=== PATIENT | female | born 1955 | race Caucasian/White ===

== ENCOUNTER 2017-03-04 09:32 | Inpatient (IN) | payer OTHER ==
[~2017-03-04] VITALS: Ht 167.6 cm; Wt 74.1 kg
[~2017-03-04 09:32] MED LIST: ALPRAZOLAM0.25 M1; CAT0.1 PO; CLONIDINE HCL0.1 MG; GLU500 PO; IMDUR30 MG; MAXZIDE1 TAB; METOPROLOL TART25 M1 PO; MIN2.5 PO; OMEPRAZOLE DR20 M1; ZES10 PO; [UNRECOGNIZED DRUG - CODE] PO
[2017-03-04 11:04] LABS: BASOPHIL % 0.5 % (0-2); PLATELET COUNT 241 x10^3mcL (130-400)
[2017-03-04 11:09] LABS: RED CELL DISTRIBUTION WIDTH 14.7 % (11.5-14.5)
[2017-03-04 11:30] LABS: CK-MB 1.4 ng/mL (0-3.6); T3 TOTAL 1.32 ng/mL
[2017-03-04 11:31] LABS: CALCIUM 9.9 mg/dL (8.5-10.1); CARBON DIOXIDE 23.9 mmol/L (21-32); CHLORIDE SERUM 95 mmol/L (98-107); CREATININE SERUM 1.3 mg/dL (0.6-1.0); GFR1 44 mL/min; GLUCOSE SERUM 193 mg/dL (74-106); POTASSIUM SERUM 3.4 mmol/L (3.5-5.1); SODIUM SERUM 133 mmol/L (136-145)
[2017-03-04 11:38] LABS: ALBUMIN 3.7 g/dL (3.4-5.0); ALKALINE PHOSPHATASE 95 U/L (46-116); ALT/SGPT 28 U/L (14-59); AST/SGOT 20 U/L (15-37); BILIRUBIN TOTAL 1.01 mg/dL (0.20-1.00); TOTAL PROTEIN, SERUM 7.8 g/dL (6.4-8.2)
[2017-03-04 12:01] LABS: ERYTHROCYTE SED RATE 28 mm/hr (0-30)
[2017-03-04 13:13] LABS: FREE T4 1.7 ng/dL (0.76-1.46); FREE THYROXINE INDEX 4.8 ug/dL (1.4-4.5); T4(THYROXINE) 13.1 ug/dL (4.7-13.3)
[2017-03-04 13:31] LABS: C REACTIVE PROTEIN < 0.2 mg/dL (<=0.9)
[2017-03-04 15:23] LABS: UA SPECIFIC GRAVITY 1.025 (1.005-1.035); microscopic required? YES; urine erythrocyte 1+ (NEGATIVE)
[2017-03-04 15:44] LABS: CHOLESTEROL/HDL RATIO 4.4; MAGNESIUM 1.7 mg/dL (1.8-2.4); PHOSPHOROUS 2.2 mg/dL (2.5-4.9)
[2017-03-04 16:46] VITALS: BP 173/108
[2017-03-04 16:48] VITALS: Ht 167.6 cm; Wt 74.1 kg
[2017-03-04 21:44] VITALS: BP 184/99
[2017-03-04 22:43] VITALS: BP 159/87
[2017-03-05 06:11] VITALS: BP 167/83
[2017-03-05 06:43] LABS: BASOPHIL % 0.5 % (0-2); PLATELET COUNT 201 x10^3mcL (130-400); RED CELL DISTRIBUTION WIDTH 14.5 % (11.5-14.5)
[2017-03-05 06:54] LABS: CALCIUM 8.4 mg/dL (8.5-10.1); CARBON DIOXIDE 25.7 mmol/L (21-32); CREATININE SERUM 1.1 mg/dL (0.6-1.0); MAGNESIUM 1.8 mg/dL (1.8-2.4); PHOSPHOROUS 3.6 mg/dL (2.5-4.9); POTASSIUM SERUM 3.9 mmol/L (3.5-5.1)
[2017-03-05 09:35] VITALS: BP 163/86
[2017-03-05 14:52] VITALS: BP 151/81
[2017-03-05 18:18] VITALS: BP 147/74
[2017-03-05 21:50] VITALS: BP 162/80
[2017-03-06 06:01] VITALS: BP 143/79
[2017-03-06 06:56] LABS: BASOPHIL % 0.9 % (0-2); PLATELET COUNT 186 x10^3mcL (130-400); RED CELL DISTRIBUTION WIDTH 14.5 % (11.5-14.5)
[2017-03-06 07:55] LABS: CALCIUM 8.1 mg/dL (8.5-10.1); CARBON DIOXIDE 22.8 mmol/L (21-32); CHLORIDE SERUM 108 mmol/L (98-107); CREATININE SERUM 0.9 mg/dL (0.6-1.0); GFR1 > 60 mL/min; GLUCOSE SERUM 126 mg/dL (74-106); POTASSIUM SERUM 4.1 mmol/L (3.5-5.1); SODIUM SERUM 140 mmol/L (136-145)
[2017-03-06 10:00] VITALS: BP 167/81
[2017-03-06 12:44] VITALS: BP 163/70
[2017-03-06 14:00] VITALS: BP 156/76
[2017-03-06 18:41] VITALS: BP 186/83
[2017-03-06 21:34] VITALS: BP 187/88
[2017-03-07 04:15] LABS: PLATELET COUNT 181 x10^3mcL (130-400); RED CELL DISTRIBUTION WIDTH 14.4 % (11.5-14.5)
[2017-03-07 04:21] LABS: BASOPHIL % 2.8 % (0-2)
[2017-03-07 04:25] LABS: CALCIUM 8.1 mg/dL (8.5-10.1); CARBON DIOXIDE 26.7 mmol/L (21-32); CHLORIDE SERUM 107 mmol/L (98-107); CREATININE SERUM 0.9 mg/dL (0.6-1.0); GFR1 > 60 mL/min; GLUCOSE SERUM 113 mg/dL (74-106); POTASSIUM SERUM 4.3 mmol/L (3.5-5.1); SODIUM SERUM 138 mmol/L (136-145)
[2017-03-07 05:42] VITALS: BP 128/82
[2017-03-07 11:13] VITALS: BP 187/82
[2017-03-07 15:18] VITALS: BP 137/74
[2017-03-07] MEDS ORDERED: ZESTRIL20 MG PO (16:35)
[2017-03-07] MEDS ORDERED: LAC PO (16:37)
[2017-03-07] MEDS ORDERED: LEVAQUIN750 MG PO (16:37)
[2017-03-07] MEDS ORDERED: OMEPRAZOLE40 M1 PO (16:40)
[2017-03-07] MEDS ORDERED: METOPROLOL TART50 MG PO (16:45)
[2017-03-07 17:31] VITALS: BP 137/74
== END 2017-03-07 18:10 | disposition home or self-care (01) | DRG 391 ==
LOC: ED 09:32 → DU 15:24
PROVIDERS: Specialist; ADMIT Family Medicine
DX: K21.9 Gastro-esophageal reflux disease without esophagitis (principal); N17.0 Acute kidney failure with tubular necrosis; N39.0 Urinary tract infection, site not specified; I16.1 Hypertensive emergency; C78.01 Secondary malignant neoplasm of right lung; E11.65 Type 2 diabetes mellitus with hyperglycemia; E11.59 Type 2 diabetes mellitus with other circulatory complications; J44.9 Chronic obstructive pulmonary disease, unspecified; G47.00 Insomnia, unspecified; E87.6 Hypokalemia; E78.2 Mixed hyperlipidemia; Z68.26 Body mass index [BMI] 26.0-26.9, adult; Z87.891 Personal history of nicotine dependence; Z85.520 Personal history of malignant carcinoid tumor of kidney; Z90.5 Acquired absence of kidney; Z96.652 Presence of left artificial knee joint; Z79.84 Long term (current) use of oral hypoglycemic drugs
CPT/HCPCS: 36600; 78598; 83880; 84439; A9540; C9113; J0360; J1170; J1644; J1956; J2270; J2405; J2765; J3010; J3490; J7030; Q0092

== ENCOUNTER 2017-05-15 15:05 | Inpatient (IN) | payer OTHER ==
[~2017-05-15] VITALS: Ht 167.6 cm; Wt 77.7 kg
[~2017-05-15 15:05] MED LIST changes: +LAC PO; +LEVAQUIN750 MG PO; +METOPROLOL TART50 MG PO; +OMEPRAZOLE40 M1 PO; +ZESTRIL20 MG PO
--- NOTE | 2017-05-15 15:13 | NUR ---
PT SENT TO LOBBY TO WAIT FOR AVAILABLE BED. 0 S/S DISTRESS AND ALERT AND ORIENTED
--- NOTE | 2017-05-15 15:48 | NUR ---
PT CAME IN TO ED W/CC OF CHEST PAIN. PT STS SHE WAS INFORMED BY [facility] THAT SHE HAS A BLOOD CLOT TO HER RT LUNG LAST WEEK AND WAS ADVISED THAT IF SHE BEGAN HAVING CHEST PAIN OR SOB TO BE SEEN IN ED. PT STS TODAY SHE BEGAN HAVING CP AND DIFFICULTY CATCHING HER BREATH. PT LUNG IVEY CLEAR UPON AUSCULTATION. NO LABORED BREATHING NOTED. PT SPEAKING IN CLEAR FULL SENTENCES. VSS. PT HAS PORTACATH TO RT UPPER CHEST REGION. COMFORT MEASURES IMPLEMENTED. CALL LIGHT W/IN REACH. PT AWAITING MSE. WILL CONTINUE TO MONITOR.
--- NOTE | 2017-05-15 16:17 | NUR ---
PORTACATH ACCESSED. SALINE LOCK APPLIED. PT DENIES PAIN OR DISCOMFORT TO SITE. WILL CONTINUE TO MONITOR.
[2017-05-15 16:25] LABS: PLATELET COUNT 187 x10^3mcL (130-400)
[2017-05-15 16:29] LABS: CALCIUM 8.4 mg/dL (8.5-10.1); CARBON DIOXIDE 28.2 mmol/L (21-32); CREATININE SERUM 1.2 mg/dL (0.6-1.0); POTASSIUM SERUM 3.5 mmol/L (3.5-5.1)
[2017-05-15 16:34] LABS: RED CELL DISTRIBUTION WIDTH 15.5 % (11.5-14.5)
[2017-05-15 16:35] LABS: BILIRUBIN TOTAL 0.2 mg/dL (0.20-1.00); TOTAL PROTEIN, SERUM 6.3 g/dL (6.4-8.2)
--- NOTE | 2017-05-15 16:57 | NUR ---
MEDICATED ORDERED. PLEASE SEE EMR.
[2017-05-15 17:05] LABS: BAND NEUTROPHIL 3 % (0-10); BASOPHIL 0 % (0-2); METAMYELOCTE 1 % (0-2); MONOCYTE 5 % (0-7); MYELOCYTE 1 % (0-2); SEGMENTED NEUTROPHILS 65 % (37-75)
[2017-05-15 17:12] LABS: rbc morphology (normal/abnorm) ABNORMAL (NORMAL)
[2017-05-15 17:13] LABS: PLATELET MORPHOLOGY LARGE PLATELET SEEN
--- NOTE | 2017-05-15 17:20 | NUR ---
SPOKE W/LINDA, FARM MACHINERY ASSEMBLER AT [facility]. LINDA [facility] IS CURRENTLY CLOSED AND ADVISED TO SEND MEDICAL RELEASE FORM TO OBTAIN PT'S CT SCAN TO FAX # . CHIQUITA, SPORTING GOODS SALES ASSOCIATE, MADE AWARE. FAX IN PROGRESS.
[2017-05-15] MEDS ORDERED: NITROGLYCERIN0.4 MG (18:43)
[2017-05-15] MEDS ORDERED: MINOXIDIL2.5 MG (18:43)
[2017-05-15] MEDS ORDERED: HCTZ/TRIAMTEREN1 CA1 (18:43)
[2017-05-15] MEDS ORDERED: NOR10T (18:44)
[2017-05-15] MEDS ORDERED: PROCHLORPERAZIN10 MG (18:44)
[2017-05-15] MEDS ORDERED: PROVENTIL0.09 MG/A1 (18:44)
[2017-05-15] MEDS ORDERED: LORAZEPAM0.5 MG (18:44)
[2017-05-15] MEDS ORDERED: ZOF4 (18:44)
--- NOTE | 2017-05-15 18:51 | NUR ---
REPORT GIVENT TO EDWIN COMER FOR CONTINUATION OF CARE PRIMARY RN.
--- NOTE | 2017-05-15 19:07 | NUR ---
REPORT RECEIVED FROM ROSIE PINEDA.
--- NOTE | 2017-05-15 19:30 | NUR ---
RECEIVED PT FROM ED VIA ROXANA. ORIENTED PT TO ROOM AND SURROUNDINGS. RIGHT CHEST PORTACATH NOTED. TELE 15 PLACED ON PT READING NSR. INSTRUCTED PT ON THE USE OF CALL LIGHT FOR ASSISTANCE. ENDORSED PT TO PRIMARY NURSE MATTIE
[2017-05-15 19:40] LABS: CHOLESTEROL/HDL RATIO 4.5; MAGNESIUM 1.5 mg/dL (1.8-2.4); PHOSPHOROUS 3.8 mg/dL (2.5-4.9); T3 TOTAL 1.55 ng/mL
[2017-05-15 19:45] VITALS: BP 190/105
--- NOTE | 2017-05-15 20:00 | NUR ---
PT ALERT AND AWAKE. AOX4. VERBAL WITH CLEAR SPEECH. LUNGS WITH WHEEZE ON AUSCULTATION. RT PROTOCOL. PT C/O CHEST FEELING HEAVY, BP 190/105. 98% RA. ABD SOFT AND ROUND. BOWEL SOUNDS ACTIVE. NO EDEMA NOTED. PULSES PALPABLE. DR. SALAZAR NOTIFIED AND AWARE. RECEIVED NEW ORDERS.
[2017-05-15 20:01] LABS: FREE THYROXINE INDEX 4.3 ug/dL (1.4-4.5); T4(THYROXINE) 11.7 ug/dL (4.7-13.3)
[2017-05-15 20:11] LABS: FREE T4 1.29 ng/dL (0.76-1.46)
[2017-05-15 20:50] VITALS: BP 190/105
--- NOTE | 2017-05-15 21:10 | NUR ---
PORTACATH TO RIGHT CHEST PATENT AND INTACT WITH IV NS INFUSING WELL AT 70 L/HR. NEW IV STARTED TO LEFT HAND 22 G. LOADING IV DOSE 6,200 UNITS GIVEN. IV HEPARIN INFUSING AT 1,400 UNITS/HR TO LEFT HAND. NOTED BP 177/114. PRN MORPHINE 5 MG IVP GIVEN AND ALSO CATAPRES 0.2 MG. HOB ELEVATED. NO S/S OF RESPIRATORY DISTRESS NOTED. CALL LIGHT WITHIN REACH. WILL CONTINUE TO MONITOR.
[2017-05-15 21:40] VITALS: BP 172/72
--- NOTE | 2017-05-15 21:45 | NUR ---
PT RESTING IN BED. BREATHING EQUAL AND UNLABORED. PT STATES FEELING BETTER AND RATES CHEST PAIN LEVEL 5/10. RECHECKED BP 172/72, 96% RA. NOTIFIED AND AWARE OF PT'S CURRENT CONDITION. PER MD ORDER, CHECK PT'S BP AGAIN AT 0000. PT CURRENTLY AWAKE, ALERT, AND WATCHING TV. CALL LIGHT WITHIN REACH. WILL CONTINUE TO MONITOR.
--- NOTE | 2017-05-15 22:30 | NUR ---
PT REFUSED ABG.
[2017-05-16] VITALS (7 sets, daily range): BP systolic 140–180; BP diastolic 75–109
--- NOTE | 2017-05-16 00:25 | NUR ---
PT RESTING WITH EYES CLOSED. BREATHING EQUAL AND UNLABORED. NO S/S OF RESPIRATORY DISTRESS NOTED. RECHECKED VS: T 97.7, HR 84, RR 16, BP 140/78, MAP 92. PT STILL HAVING CHEST PAIN 03/12. PRN MORPHINE 2MG IVP GIVEN. CALL LIGHT WITHIN REACH. WILL CONTINUE TO MONITOR.
--- NOTE | 2017-05-16 02:00 | NUR ---
RECEIVED CALL FROM [employer], PT HAD 9 SEC RUN OF VTACH. PT ALERT AND VERBAL WITH CLEAR SPEECH. ON O2 2L VIA NC. C/O 04/11 CHEST "HEAVINESS." BP 164/109, MAP 127, HR 88. DR. SALAZAR NOTIFIED AND AWARE. AWAITING NEW ORDERS.
--- NOTE | 2017-05-16 03:40 | NUR ---
RECHECKED PT'S VS: BP 149/81, MAP 94, HR 84, 95% 2L O2 VIA NC. NO S/S OF RESPIRATORY DISTRESS NOTED. EASILY AROUSED. PT C/O CHEST PAIN HEAVINESS 04/11. PRN MORPHINE 2 MG IVP GIVEN. IV HEPARIN INFUSING WELL AT 1400 UNITS PER HR TO LEFT FA AND IV NS INFUSING WELL TO LEFT UPPER CHEST PORTACATH. WILL CONTINUE TO MONITOR.
--- NOTE | 2017-05-16 05:06 | NUR ---
RECEIVED CRITICAL LAB PTT 150. IV HEPARIN HELD AT THIS TIME. PT STATES CHEST PAIN FEELING BETTER. NO S/S OF DISTRESS NOTED. DR. SALAZAR NOTIFIED AND AWARE.
--- NOTE | 2017-05-16 06:14 | NUR ---
PT SLEPT WELL THROUGH THE NIGHT. CURRENTLY AWAKE AND WATCHING TV AT THIS TIME. NO S/S OF DISTRESS NOTED. REMAINS ON O2 2L. BREATHING EQUAL AND UNLABORED. IV NS INFUSING WELL TO RIGHT UPPER CHEST PORTACATH. PT STATES HAVING SOB WHEN COMING BACK FROM THE [place]. 97% 2L O2 VIA NC. RT PROTOCOL. CALL LIGHT WITHIN REACH. WILL CONTINUE TO MONITOR.
[2017-05-16 07:19] LABS: microscopic required? YES; urine erythrocyte TRACE (NEGATIVE)
[2017-05-16 07:24] LABS: PLATELET COUNT 217 x10^3mcL (130-400)
[2017-05-16 07:26] LABS: RED CELL DISTRIBUTION WIDTH 15.9 % (11.5-14.5)
--- NOTE | 2017-05-16 07:30 | NUR ---
AAO X4.C/O CHEST PAIN AT 6/10 PAIN SCALE.WILL GIVE MEDS NEEDED.LUNG SOUND DIM ON THE BASES.ON [address] ON THE MONITOR.UV=169.IVF NS GOING AT 70 ML/HR INFUSING WELL.HEPARIN ON HOLD FOR PTT > 150 REPORTED BY NOC RN.JUST DRAW BLOOD FOR PTT.CALL LIGHT WITHIN REACH.INSTRUCTED TO CALL FOR ANY PAIN/DISCOMFORT.WILL CONTINUE TO MONITOR PT.
[2017-05-16 07:32] LABS: CALCIUM 8.8 mg/dL (8.5-10.1); CARBON DIOXIDE 26.1 mmol/L (21-32); CREATININE SERUM 1.1 mg/dL (0.6-1.0); MAGNESIUM 2.1 mg/dL (1.8-2.4); POTASSIUM SERUM 3.9 mmol/L (3.5-5.1)
[2017-05-16 08:12] LABS: BAND NEUTROPHIL 3 % (0-10); BASOPHIL 0 % (0-2); MONOCYTE 2 % (0-7); SEGMENTED NEUTROPHILS 88 % (37-75)
[2017-05-16 08:16] LABS: rbc morphology (normal/abnorm) ABNORMAL (NORMAL)
--- NOTE | 2017-05-16 08:20 | NUR ---
PTT=39.8.TURNED ON THE HEPARIN GTT AND INCREASED GTT TO 200 UNITS PER PROTOCOL ALSOO BOLUSED HER WITH 3100 UNITS PER PROTOCOL.CURRENT RATE NOW IS 1600 UNITS/HR.ORDERED NEXT PTT AT 1220.
--- NOTE | 2017-05-16 08:24 | NUR ---
AND MEDICINE TEAM AT BEDSIDE.INFORMED PT ABOUT THE PLAN OF CARE.ALSO WILL HAVE PSYCHE CONSULT TO SEE PT.COOPERATIVE WITH THE PLAN OF CARE.
--- NOTE | 2017-05-16 13:00 | NUR ---
TTH=130.HELD HEPARIN GTT FOR AN HOUR PER HEPARIN PROTOCOL.THEN WILL REDUCE GTT TO 200 UNITS/HR.ORDERED NEXT PTT AT 1800
--- NOTE | 2017-05-16 14:10 | NUR ---
GAVE HYDRALAZINE 10 MG IVP ORDERED FOR BC=711/101.
--- NOTE | 2017-05-16 14:17 | NUR ---
RECHECKED AO=629/87,HR=96 AFTER GIVING HER HYDRALAZINE.
--- NOTE | 2017-05-16 18:00 | NUR ---
PTT=82.8,DECREASED HEPARIN GTT TO 200 UNITS PER PROTOCOL.ORDERED NEXT PTT AT 2200.CURRENT HEPARIN GTT AFTER [id number]=6441 UNITS/HR
--- NOTE | 2017-05-16 18:33 | NUR ---
NO SIGNIFICANT CHANGE NOTED.WILL ENDORSE TO NEXT SHIFT.
--- NOTE | 2017-05-16 18:50 | NUR ---
GAVE HYDRALALAZINE 10 MG IVP ORDERED PT'S SY=113/87.
--- NOTE | 2017-05-16 20:00 | NUR ---
RECEIVED PT IN BED AWAKE, ALERT, ORIENTED X3. PT APPEARS WITHDRAWN AND SAD AT TIMES, SEEMS TO BE CRYING. COMFORT MEASURES PROVIDED. LUNG SOUNDS CRACKLES BILATERALLY. TELE 15 SHOWS SR. MILD CHEST PAIN NOTED. TOLERATING WELL AT THIS TIME. RIGHT BLAINE CATH IN TACT INFUSING NS AT 70ML/HR. PT ON HEPARIN DRIP AT 1200 UNITS/HR TO LFA. NEXT PTT 2200. SHIFT ASSESSMENT COMPLETED. CALL LIGHT WITHIN REACH. BED IS IN LOWEST POSITION. WILL CONTINUE TO MONITOR CLOSELY.
--- NOTE | 2017-05-16 21:10 | NUR ---
ALL DUE MEDS GIVEN ORDERED, PT GIVEN NORCO FOR PAIN. IVF ONGOING. CALL LIGHT WITHIN REACH. WILL CONTINUE TO MONITOR CLOSELY.
--- NOTE | 2017-05-16 23:05 | NUR ---
PT PTT IS 75.3, CHANGED HEPARIN DRIP TO 1000 UNITS/HR AT THIS TIME. ORDERED NEXT PTT FOR 0300. PT RESTING IN BED IN NO DISTRESS. WILL CONTINUE TO MONITOR CLOSELY.
[2017-05-17 03:25] LABS: BASOPHIL % 0.5 % (0-2); PLATELET COUNT 219 x10^3mcL (130-400)
[2017-05-17 03:26] LABS: RED CELL DISTRIBUTION WIDTH 15.9 % (11.5-14.5)
[2017-05-17 03:48] LABS: CALCIUM 8.4 mg/dL (8.5-10.1); MAGNESIUM 1.7 mg/dL (1.8-2.4); POTASSIUM SERUM 4.1 mmol/L (3.5-5.1)
--- NOTE | 2017-05-17 04:00 | NUR ---
PTT IS 62.5, NO CHANGE. FIRST THERAPUETIC PTT. NEXT PTT AT 0800. PT RESTING IN BED.
[2017-05-17 06:05] VITALS: BP 182/92
--- NOTE | 2017-05-17 07:40 | NUR ---
RECEIVED PT IN BED A/A/OX4 DENIES GALLEGOS. RESP EVEN AND UNLABORED WITH CRACKLES TO RT SIDE. ON O2 AT 2L/MIN VIA NC WITH RT PROTOCOL. ON HEPARIN DRIP AT 1000 UNITS/HR FOR +PE. DENIES ANY CP/PRESSURE AT THIS TIME. ST ON TELE. NO EDEMA NOTED WITH IVF TO RT CHEST PORT CATH AND LFA IV SITE WITH HEPARIN DRIP. ABD SOFT, NONTENDER WITH ACTIVE BS X4. DENIES ANY N/V AT THIS TIME. AMBUALTORY. CALL LIGHT IN REACH NEEDS ATTENDED TO.
--- NOTE | 2017-05-17 08:32 | NUR ---
RECEIVED PTT 54.4, SECOND THERAPEUDIC NO CHANGE IN DRIP. WILL ORDER DAILY PTT. WILL CONT TO MONITOR.
--- NOTE | 2017-05-17 09:00 | NUR ---
PT C/O CP 9/10 MORPHINE IVP PULLED AND GIVEN AT THIS TIME. ONCE ALL MEDICATIONS WERE COMPLETED AND ATTEMPTED TO SUMMIT MEDS MORPHINE HAD BEEN DISCONTINUED AND WAS UNABLE TO DOCUMENT IN EMAR. PT HAD ALREADY RECEIVED DOSE BEFORE IT WAS DISCONTINUED. DR. WARD AND MEDICAL TEAM CAME IN FOR AM ROUNDS AND WERE MADE AWARE. MD ORDER EKG AT THIS TIME. PT NOTED WITH ELEVATED B/P WELL 202/95, AM MEDS GIVEN WILL CONT TO MONITOR.
[2017-05-17 10:20] VITALS: BP 200/96
[2017-05-17 11:00] VITALS: BP 170/93
[2017-05-17 14:31] VITALS: BP 161/82
[2017-05-17] MEDS ORDERED: ELIQUIS5 MG PO (14:47)
--- NOTE | 2017-05-17 15:06 | NUR ---
DR. WHEELER PAGED AWAITING CALL BACK TO INQUIRE IF PT WILL NEED DOSE OF ELIQUIS PRIOR TO D/C. AWAITING CALL BACK.
--- NOTE | 2017-05-17 15:21 | NUR ---
Initial Nutrition Assessment Dx: Pulmonary Embolism, Lung CA PMHx: Lung CA diagnosed October 2016, GERD, DM, Dislipidemia, Anxiety PSHx: Right total nephrectomy, Left knee replacement Labs: BG 182H, ALB 3L, TBili 0.2 L, TG 235H, LDL 105H, A1C 6.9H, Mages 1.7L, WBC 21 H, H/H 9.3/29L. Meds: Colace, D50%, Dyazide, NS IV, Glucophage, Hep-lock, Humulin, Hydrazaline, Ipatropium bromide, Prilosec, Zofran, Solumedrol, Heparin Diet: CCHO 60g PO Intake: (05/16) 90%, (05/17) B: 40% Ht: 66in Wt: 171Lb (Admit wt discrepancy due to possible bed equipment) Weight history: (05/15) 149lb BMI: 27.7kg/m2 (Overweight) IBW: 130lb %IBW: 131% Adj. Body Weight: 140lb UBW: 155lb (per pt) Age: 61 y/o F Food Allergies: No Skin: Tom 19 Edema: No GI: Bowel sounds active. Last BM 05/15 Pt admitted with possible acute respiratory failure secondary to pulmonary embolism, pt on chemo, treated at [facility], pt found with thrombocytopenia and a pulmonary embolism on right upper lobe, stopped chemo due to thrombocytopenia, CT chest shows 11x9 mm lung nodule in right middle lobe per H&P notes. Per progress note (05/16) pt continuous to have chest discomfort, is visibly distressed, pt is pending psychological evaluation. quality internship visited pt who had lunch tray in bed but was not eating, pt's was eating entr e dish, RN nurse was notified. Pt stated has poor PO and constant nausea, internet media planner offered information about oral supplements, pt acknowledged information but was unfocussed. Pt is on medications for nausea, pt seemed depressed and uninterested in eating. Problems with: N: Yes V: No D: No C: No Problems with: Chewing: No Swallowing: No Current Appetite: Poor Recent wt change: +16 lb (pt unsure about when last weighted 155lb) %wt change: 9% wt gain Vitamin/Supplement use: No Diet at home: Regular Physical activity: Walks at home for daily activities Education: quality internship spoke to pt about how nausea has affected pt's appetite, internet media planner encouraged small meals and snacks throughout day, and oral supplements to increase PO intake. Per pt she does not like oral supplements due to thickness, internet media planner encouraged diluting the supplement with water or buying clear liquid supplements. Pt stated may try at home, but not agreeable to having oral supplements included with meals, pt stated will be discharged soon. Estimated Nutritional Needs Based on: Adjusted body weight 140lb, 63.5kg Energy: 1905-2222kcal/d (kcal/kg 30-35 for current lung CA) Protein: 76-95g/d (1.2-1.5 for current lung CA) Fluid: 1905-2222ml/d (1ml/kcal) or per doctor Nutrition Diagnosis: 1. Increased nutritional needs related to catabolic state as evidenced by current lung CA. 2. Altered nutrition related lab values related to pancreatic dysfunction as evidenced by A1C of 6.9 and BG 182. Intervention: 1. Continue CCHO 60g 2. Consider appetite stimulant if poor PO intake continuous <50%. 3. Adjust nausea medications as appropriate Monitor/ Evaluate: Goal: PO intake to meet at least 75% of estimated needs Monitor: PO intake, Labs (BG), GI function F/U in 3-5days as Moderate risk (05/20-05/22)
--- NOTE | 2017-05-17 15:21 | NUR ---
1. Continue CCHO 60g 2. Consider appetite stimulant if PO intake continuous <50%. 3. Adjust nausea medications as appropriate
[2017-05-17 15:24] VITALS: BP 161/82
--- NOTE | 2017-05-17 15:31 | NUR ---
SPOKE WITH DR. WHEELER. REGARDING POSSIBLE NEED FOR MEDROL ONCE D/C. NO ORDERS AT THIS TIME. OK FOR PT TO BE D/C'D AND WILL TELETYPESETTER OPERATOR ELIQUIS ON HER WAY HOME AND TAKE FIRST DOSE AT THAT TIME. PER OK TO D/C HEPARIN RIGHT BEFORE DC AND PT IS AWARE SHE NEEDS TO TELETYPESETTER OPERATOR MEDICATION ON HER WAY HOME TODAY. WILL CONT TO MONITOR.
--- NOTE | 2017-05-17 16:06 | NUR ---
PT PROVIDED WITH D/C HOME INSTRUCTIONS. GIVEN MEDICATION EDUCATION. INSTRUCTED TO AUDITOR IN CHARGE ELIQUIS ON HER WAY HOME AND TAKE SOON POSSIBLE. MADE AWARE OF F/U APPT. VERBAL AND WRITTEN EDUCATION PROVIDED ON ELIQUIS AND PE. PT VERBALIZED UNDERSTANDING OF INSTRUCTIONS. TELE AND IV D/C'D CATHETER INTACT. BLAINE CATH ACCESS REMOVED PER PROTOCOL. PT AWAITING TRANSPORTATION TO [facility] AT THIS TIME.
--- NOTE | 2017-05-17 16:09 | NUR ---
WAS MADE AWARE BY RADIOGRAPHER TECHNOLOGIST THAT PT WALKED OUT DID NOT WANT TO WAIT FOR WC OR FOR NURSE TO ACCOMPANY PT TO LOBBY.
== END 2017-05-17 16:11 | disposition home or self-care (01) | DRG 176 ==
LOC: ED 15:05 → DU 18:33
PROVIDERS: Family Medicine; ADMIT Family Medicine
DX: I26.99 Other pulmonary embolism without acute cor pulmonale (principal); J44.1 Chronic obstructive pulmonary disease with (acute) exacerbation; D68.69 Other thrombophilia; C34.2 Malignant neoplasm of middle lobe, bronchus or lung; C64.9 Malignant neoplasm of unspecified kidney, except renal pelvis; C79.72 Secondary malignant neoplasm of left adrenal gland; E44.0 Moderate protein-calorie malnutrition; E11.65 Type 2 diabetes mellitus with hyperglycemia; K21.9 Gastro-esophageal reflux disease without esophagitis; E83.42 Hypomagnesemia; I16.0 Hypertensive urgency; D63.0 Anemia in neoplastic disease; F41.9 Anxiety disorder, unspecified; E78.5 Hyperlipidemia, unspecified; Z90.5 Acquired absence of kidney; Z96.652 Presence of left artificial knee joint; F17.210 Nicotine dependence, cigarettes, uncomplicated; Z85.520 Personal history of malignant carcinoid tumor of kidney
CPT/HCPCS: 82962; 83880; 84439; J0360; J1644; J2060; J2270; J2405; J2920; J2930; J3475; J7030; J7620; J7626; Q0092

== ENCOUNTER 2018-06-27 10:14 | Observation (INO) | payer OTHER ==
[~2018-06-27] VITALS: Ht 165.1 cm; Wt 65.0 kg
[~2018-06-27 10:14] MED LIST changes: +ELIQUIS5 MG PO; +HCTZ/TRIAMTEREN1 CA1; +LORAZEPAM0.5 MG; +MINOXIDIL2.5 MG; +NITROGLYCERIN0.4 MG; +NOR10T; +PROCHLORPERAZIN10 MG; +PROVENTIL0.09 MG/A1; +ZOF4
[2018-06-27 10:15] VITALS: Ht 165.1 cm; Wt 65.0 kg
[2018-06-27 11:09] LABS: BASOPHIL % 0.5 % (0-2); PLATELET COUNT 207 x10^3mcL (130-400); RED CELL DISTRIBUTION WIDTH 14.2 % (11.5-14.5)
[2018-06-27 11:34] LABS: FREE T4 0.98 ng/dL (0.76-1.46); FREE THYROXINE INDEX 2.7 ug/dL (1.4-4.5); T4(THYROXINE) 8.4 ug/dL (4.7-13.3)
[2018-06-27 11:37] LABS: T3 TOTAL 1.35 ng/mL
[2018-06-27 11:38] LABS: CARBON DIOXIDE 23.1 mmol/L (21-32); CHLORIDE SERUM 104 mmol/L (98-107); CREATININE SERUM 0.8 mg/dL (0.6-1.0); GFR1 > 60 mL/min; GLUCOSE SERUM 146 mg/dL (74-106); POTASSIUM SERUM 4.3 mmol/L (3.5-5.1); SODIUM SERUM 139 mmol/L (136-145)
[2018-06-27 11:46] LABS: ALBUMIN 3.7 g/dL (3.4-5.0); ALKALINE PHOSPHATASE 106 U/L (46-116); ALT/SGPT 23 U/L (14-59); AST/SGOT 17 U/L (15-37); BILIRUBIN TOTAL 0.3 mg/dL (0.20-1.00); TOTAL PROTEIN, SERUM 7.8 g/dL (6.4-8.2)
[2018-06-27 12:01] LABS: CK-MB 0.8 ng/mL (0-3.6)
[2018-06-27 12:06] LABS: C REACTIVE PROTEIN < 0.2 mg/dL (<=0.9)
[2018-06-27 13:29] VITALS: BP 179/76
[2018-06-27 15:24] LABS: ERYTHROCYTE SED RATE 29 mm/hr (0-30)
[2018-06-27 16:46] VITALS: BP 193/81
[2018-06-27 19:04] VITALS: BP 180/84
[2018-06-27 20:03] LABS: microscopic required? NO
[2018-06-27 20:13] LABS: urine erythrocyte NEGATIVE (NEGATIVE)
[2018-06-27 21:00] VITALS: BP 148/88
[2018-06-28 05:53] VITALS: BP 175/91
[2018-06-28 06:15] LABS: PLATELET COUNT 218 x10^3mcL (130-400); RED CELL DISTRIBUTION WIDTH 14.5 % (11.5-14.5)
[2018-06-28 06:30] LABS: CALCIUM 9.3 mg/dL (8.5-10.1); CARBON DIOXIDE 23.8 mmol/L (21-32); CHLORIDE SERUM 107 mmol/L (98-107); CREATININE SERUM 0.9 mg/dL (0.6-1.0); GFR1 > 60 mL/min; GLUCOSE SERUM 141 mg/dL (74-106); POTASSIUM SERUM 4.1 mmol/L (3.5-5.1); SODIUM SERUM 144 mmol/L (136-145)
[2018-06-28 12:46] LABS: BAND NEUTROPHIL 6 % (0-10); BASOPHIL 0 % (0-2); MONOCYTE 3 % (0-7); SEGMENTED NEUTROPHILS 89 % (37-75)
[2018-06-28 12:48] LABS: PLATELET MORPHOLOGY PLATELETS DECREASED; rbc morphology (normal/abnorm) NORMAL (NORMAL)
== END 2018-06-28 09:48 | disposition left against medical advice (07) | DRG 181 ==
LOC: ED 10:14 → DU 12:10
PROVIDERS: Internal Medicine; Specialist
DX: C78.00 Secondary malignant neoplasm of unspecified lung (principal); J44.1 Chronic obstructive pulmonary disease with (acute) exacerbation; C67.9 Malignant neoplasm of bladder, unspecified; I16.0 Hypertensive urgency; I25.10 Atherosclerotic heart disease of native coronary artery without angina pectoris; I12.9 Hypertensive chronic kidney disease with stage 1 through stage 4 chronic kidney disease, or unspecified chronic kidney disease; N18.9 Chronic kidney disease, unspecified; F32.9 Major depressive disorder, single episode, unspecified; F41.9 Anxiety disorder, unspecified; E03.9 Hypothyroidism, unspecified; Z68.23 Body mass index [BMI] 23.0-23.9, adult; Z87.891 Personal history of nicotine dependence; Z79.891 Long term (current) use of opiate analgesic; Z86.711 Personal history of pulmonary embolism; Z79.01 Long term (current) use of anticoagulants; Z85.528 Personal history of other malignant neoplasm of kidney; Z90.5 Acquired absence of kidney
CPT/HCPCS: 82962; 83880; 84439; G0378; J0360; J0456; J1170; J2270; J2405; J2920; J2930; J3010; J3535; J7040; J7613; J7644

== ENCOUNTER 2019-06-13 10:59 | Inpatient (IN) | payer OTHER ==
[~2019-06-13] VITALS: Ht 167.6 cm; Wt 60.6 kg
[2019-06-13 11:06] VITALS: Ht 167.6 cm; Wt 60.6 kg
--- NOTE | 2019-06-13 11:19 | NUR ---
DR PACKER AT BEDSIDE FOR EVAL, APR RN AT BEDSIDE PARLIAMENTARY LIBRARIAN.//APR RN
[2019-06-13 12:09] LABS: BASOPHIL % 0.3 % (0-2); PLATELET COUNT 250 x10^3mcL (130-400)
[2019-06-13 13:20] LABS: ERYTHROCYTE SED RATE 19 mm/hr (0-30)
[2019-06-13 13:34] LABS: CALCIUM 8.4 mg/dL (8.5-10.1); CHLORIDE SERUM 100 mmol/L (98-107); CREATININE SERUM 1.1 mg/dL (0.6-1.0); GFR1 53 mL/min; GLUCOSE SERUM 124 mg/dL (74-106); POTASSIUM SERUM 3.5 mmol/L (3.5-5.1); SODIUM SERUM 138 mmol/L (136-145)
--- NOTE | 2019-06-13 13:47 | NUR ---
U/S DONE AT BEDSIDE AT THIS TIME//JAN RN
[2019-06-13 14:03] LABS: CK-MB 1.9 ng/mL (0-3.6)
[2019-06-13 14:04] LABS: ALBUMIN 3.5 g/dL (3.4-5.0); ALKALINE PHOSPHATASE 100 U/L (46-116); ALT/SGPT 16 U/L (14-59); AST/SGOT 9 U/L (15-37); BILIRUBIN TOTAL 0.75 mg/dL (0.20-1.00); T4(THYROXINE) 9.2 ug/dL (4.7-13.3); TOTAL PROTEIN, SERUM 7.1 g/dL (6.4-8.2)
[2019-06-13 14:24] LABS: C REACTIVE PROTEIN < 0.2 mg/dL (<=0.9); FREE T4 1.23 ng/dL (0.76-1.46)
--- NOTE | 2019-06-13 14:40 | NUR ---
PATIENT TAKEN TO CT SCAN AT THIS TIME//APR RN
[2019-06-13 14:46] LABS: UA SPECIFIC GRAVITY <=1.005 (1.005-1.035); microscopic required? YES; urine erythrocyte TRACE (NEGATIVE)
--- NOTE | 2019-06-13 14:56 | NUR ---
PATIENT RETURNED FROM CT SCAN AT THIS TIME//APR RN
--- NOTE | 2019-06-13 16:00 | NUR ---
REPORT CALLED TO EDWIN GONZALEZ (COVERING FOR EDWIN ESCOBEDO).//APR RN
[2019-06-13 16:43] VITALS: BP 180/103
--- NOTE | 2019-06-13 18:15 | NUR ---
PER PT, PCP ODERED PT TO HOLD ELIQUIS AT HOME IN PREP FOR PORTACATH REPLACEMENT. PER PT PORTACATH WAS REPLACED ON Tuesday06/07/19 AND HAS NOT STARTED TAKING BLOOD THINNER SINCE NEW BLAINE CATH. PER DR. GLEZ ORDERS, HOLD HEPARIN SQ 2100 06/13N DOSE AND FOLLOW UP WITH IN THE MORNING TOO DETEREMINE NEED FOR ELIQUIS. FAMILY MEMBER WILL ALSO CALL PCP 06/14 TO CONFIRM ELIQUIS RESTARTING OR CONTINUATION OF HOLD.
--- NOTE | 2019-06-13 18:50 | NUR ---
PT IS LAYING DOWN IN BED WITH HOB UP RESTING. PT LOOKS TO BE IN NO ACUTE DISTRESS AT THIS TIME AND STATES IS STARTING TO IMPROVE. PORTACATH IS PATENT WITH NO SIGNS OF ERYTHEMA OR SWELLING WITH FLUIDS INFUSING. BED IN LOWEST POSITION, CALL LIGHT WITHIN REACH. FAMILY MEMBER AT BEDSIDE. WILL ENDORSE TO ONCOMING SHIFT.
--- NOTE | 2019-06-13 19:20 | NUR ---
CARE ASSUMED FROM OUTGOING RN. PT RESTING COMFORTABLY IN BED. NO ACUTE DISTRESS NOTED. EVEN AND UNLABORED RESPIRATIONS ON RA. ON TELE# 13 READING SR 87. LEFT BLAINE CATH, PATENT AND INTACT RUNNING FLUIDS PER EMAR. PAIN MEDICATION EFFECTIVE, BACK PAIN RESOLVING AT THIS TIME. BED IN LOWEST POSITION. SIDE RAILS UPX2. CALL LIGHT WITHIN REACH. WILL CONTINUE TO MONITOR.
[2019-06-13 20:15] VITALS: BP 153/86
--- NOTE | 2019-06-13 21:00 | NUR ---
RECHECKED PT TEMP, 100.4. COOLING MEASURES INITIATED, ICE PACKS PROVIDED. HEADACHE RESOLVING, BUT PT C/O BACK PAIN. WILL MEDICATE PER EMAR AND REASSESS FOR PAIN AND TEMPERATURE.
[2019-06-13 22:34] VITALS: BP 159/99
--- NOTE | 2019-06-13 23:58 | NUR ---
PT RESTING COMFORTABLY IN BED. C/O BACK PAIN 05/12, MEDICATED PER EMAR. TEMP RECHECKED 99.1. BP RECHECKED, 150/86. EVEN AND UNLABORED RESPIRATIONS ON RA. BED IN LOWEST POSITION. SIDE RAILS UPX2. CALL LIGHT WITHIN REACH. WILL CONTINUE TO MONITOR.
[2019-06-14 03:39] VITALS: BP 126/72
[2019-06-14 05:43] VITALS: BP 159/85
[2019-06-14 06:14] LABS: BASOPHIL % 0.6 % (0-2); PLATELET COUNT 179 x10^3mcL (130-400); RED CELL DISTRIBUTION WIDTH 14.2 % (11.5-14.5)
--- NOTE | 2019-06-14 06:48 | NUR ---
PT RESTED COMFORTABLY THROUGHOUT THE SHIFT. ALL NEEDS TENDED TO AND MET. ALL SCHEDULED MEDICATIONS GIVEN. ON TELE# 13 READING SR 71. LEFT BLAINE CATH, PATENT AND INTACT RUNNING FLUIDS PER EMAR, DRESSING CDI. C/O BACK PAIN MEDICATED PER EMAR. TEMP OF 100.4 MEDICATED PER EMAR, COOLING MEASURES APPLIED. ELEVATED BP MEDICATED PER EMAR. LAST BP CHECKED: 159/85, TEMP: 98.9. BED IN LOWEST POSITION. SIDE RAILS UPX2. CALL LIGHT WITHIN REACH. WILL ENDORSE TO ONCOMING SHIFT.
[2019-06-14 07:25] LABS: BILIRUBIN TOTAL 0.7 mg/dL (0.20-1.00); CALCIUM 7.9 mg/dL (8.5-10.1); CARBON DIOXIDE 23.3 mmol/L (21-32); CREATININE SERUM 1.1 mg/dL (0.6-1.0); MAGNESIUM 1.7 mg/dL (1.8-2.4); POTASSIUM SERUM 3.6 mmol/L (3.5-5.1)
--- NOTE | 2019-06-14 07:30 | NUR ---
PT ENDORSE TO ME THIS MORNING, AA/O X4. BREATHING EVEN AND UNLABORED ON RA, NO ACUTE RESP DISTRESS OR SOB NOTED. TELE 13 NSR NOTED, HR 84 NO SIGNS OF CP OR PRESSURE. LAST BM PER PT 06/11/11, PER PATIENT SHE HAS NOT HAD MUCH AN APPETITE/ STATED IS PASSING GAS. VOIDS FREELY. AMB WITH ASSISTANCE AT TIMES. IV NOTED TO L BLAINE CATH OF CHEST, X2 LUMENS INTACT AND PATENT. CALL LIGHT IN REACH. BED IN LOW POSITION. WILL CONTINUE TO MONITOR.
[2019-06-14 07:33] LABS: ALBUMIN 2.6 g/dL (3.4-5.0); TOTAL PROTEIN, SERUM 5.7 g/dL (6.4-8.2)
[2019-06-14 08:21] VITALS: BP 151/87
--- NOTE | 2019-06-14 10:12 | NUR ---
PT C/O 07/12 GEN BODY PAIN, MEDICATED PER EMAR
[2019-06-14 13:02] VITALS: BP 122/77
--- NOTE | 2019-06-14 13:54 | NUR ---
PT C/O OF 10 PAIN TO GEN BODY. MEDICATED PER EMAR, FAMILY AT BEDSIDE. WILL CONTINUE TO MONITOR.
--- NOTE | 2019-06-14 16:52 | NUR ---
ECHO PENDING. PATIENT REFUSED.
--- NOTE | 2019-06-14 17:24 | NUR ---
PT BP 186/[address] SANDOVAL ORDERS GAVE IVP HYDRALAZINE IVP 0.5ML WILL ROSALIE IN IN ONE HOUR. PT RESTING WITH FAMILY AT BEDSIDE. WILL CONTINE TO MONITOR.
--- NOTE | 2019-06-14 18:19 | NUR ---
PT C/O OF BACK PAIN AND L FOOT PAIN, MEDICATED PER EMAR. WILL CONTINUE TO MONITOR.
[2019-06-14 18:31] VITALS: BP 164/87
--- NOTE | 2019-06-14 18:33 | NUR ---
NO ACUTE CHANGES AT THIS TIME, NO ACUTE RESP DISTRESS OR SOB NOTED REMAINS ON RA SATING AT 98%. MEDICATED PER EMAR FOR BACK PAIN AND L FOOT PAIN 07/12. CALL LIGHT IN REACH. BED IN LOW POSITION. WILL ENDORSE TO INCOMING RN.
--- NOTE | 2019-06-14 19:20 | NUR ---
RECEIVED PT LAYING IN BED. PT IS A/OX4. SPEECH IS CLEAR. ABLE TO MAKE NEEDS KNOWN. DENIES GALLEGOS. EENT FREE OF DISCHARGE. ORAL MUCOSA PINK AND MOIST. NO JVD NOTED. BREATHING IS E/U ON RA. EXP WHEEZES TO BUL AND DIMIN TO BLL. SYMMETRICAL EXPANSION NOTED. S1/S2 HEART SOUNDS AUSCULTATED. CHEST WALL EQUAL AND SYMMETRICAL. DENIES ANY CP. LEFT BLAINE CATH IN PLACE WITH DRESSING CDI. PALPABLE PULSES X4 EXTREMITIES. SKIN IS WARM AND DRY. NO EDEMA NOTED. NS INFUSING @ 80 ML/HR. CAP REFILL < 3 SECS. GENERALIZED WEAKNESS. NO JOINT SWELLING/DEFORMITY NOTED. PT IS ON CCHO DIET. NO N/V NOTED. ABD IS SOFT, ROUND, NONTENDER TO PALPATION. BOWEL SOUNDS ACTIVE X4 QUADRANTS. NO BM NOTED. PT VOIDS FREELY. NO LABIAL EDEMA OR VAGINAL DISCHARGE NOTED. SKIN IS INTACT. PT ASSISTED TO REPOSITION Q2H AND PRN FOR COMFORT. PT IS CALM AND COOPERATIVE. BED IN LOW POSITION. CALL LIGHT IN REACH. WILL CONT TO MONITOR
[2019-06-14 20:25] VITALS: BP 155/76
--- NOTE | 2019-06-14 21:13 | NUR ---
PT C/O ACHING ABD PAIN. PT MEDICATED WITH NORCO PER EMAR
--- NOTE | 2019-06-14 21:35 | NUR ---
REPORT GIVEN TO RONNY PINEDA FOR CONTINUITY OF CARE. ENDORSING ALL CARE
--- NOTE | 2019-06-14 21:35 | NUR ---
RESUMED CARE OF PT. PT RESTING IN BED. IN NO ACUTE DISTRESS. CALL LIGHT WITHIN REACH. BED IN LOWEST POSITION. WILL CONTINUE TO MONITOR.
[2019-06-15] VITALS (7 sets, daily range): BP systolic 146–190; BP diastolic 69–89
--- NOTE | 2019-06-15 00:47 | NUR ---
PT RESTING IN BED. RR EVEN AND UNLABORED. IN NO ACUTE DISTRESS. CALL LIGHT WITHIN REACH. BED IN LOWEST POSITION. WILL CONTINUE TO MONITOR.
[2019-06-15 06:17] LABS: BASOPHIL % 0.6 % (0-2); PLATELET COUNT 180 x10^3mcL (130-400); RED CELL DISTRIBUTION WIDTH 14.2 % (11.5-14.5)
[2019-06-15 06:51] LABS: BILIRUBIN TOTAL 0.6 mg/dL (0.20-1.00); CALCIUM 7.6 mg/dL (8.5-10.1); CARBON DIOXIDE 25.5 mmol/L (21-32); MAGNESIUM 1.6 mg/dL (1.8-2.4)
[2019-06-15 06:55] LABS: ALBUMIN 2.6 g/dL (3.4-5.0); TOTAL PROTEIN, SERUM 5.4 g/dL (6.4-8.2)
--- NOTE | 2019-06-15 09:33 | NUR ---
PT WAS C/O BACK PAIN AND LEFT FOOT PAIN,05/12. ADMINISTERED MORPHIN IV 4MG A 932 AND REASSESSED NOW, PT SAID SHE DOESNOT HAVE PAIN ANYMORE. RESTING IN BED COMFORTABLY. FAMILY AT BED SIDE.
--- NOTE | 2019-06-15 09:45 | NUR ---
CALLED AND INFORMED ABOUT BLOOD CULTURE RESULT GRAM POSITVE COCCI IN [place]. HE SAID HE WILL HOLD THE DISCHARGE. ALSO INFORMED HIM ABOUT PT BP 182/89. WILL RECHECK AGAIN 30MIN AFTER THE PAIN MED.
--- NOTE | 2019-06-15 10:00 | NUR ---
RECHECKED PT BP 156/72. ASYMPTAMATIC. STABLE.
--- NOTE | 2019-06-15 12:40 | NUR ---
LATE ENTRY: RECHECKED BS IS 119. PT IS STABLE.
--- NOTE | 2019-06-15 12:46 | NUR ---
PT BP 190/81. HYDRALAZINE 10MG IV GIVEN ORDERED. WILL RECEHCK BP. PT ASYMPTAMATIC.
--- NOTE | 2019-06-15 13:15 | NUR ---
RECHECKED BP IS 156/71. PT IS STABLE.
--- NOTE | 2019-06-15 14:30 | NUR ---
PT RESTING IN BED COMFORTABLY. DENIES ANY PAIN THIS TIME.
--- NOTE | 2019-06-15 14:35 | NUR ---
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 2.6L, Ca 7.6L, AST 12L, ALT 13L, RBC 3.66L, Hgb 11.4L, Hct. 35L Meds: Ambien, Ativan, Humulin, Vancomycin, Zofran Diet: CCHO PO intake since admission: None noted, states pt has poor appetite Ht: 167.64cm, 66in Wt:60.583kg, 133# BMI: 21.6kg/m2 (Normal) Bed scale: 142# IBW: 130#, 59kg %IBW: 102% UBW: 129# Age: 63/F Food Allergies: NKFA Skin: Intact Tom: 19 Edema: None GI: Last BM: 06/15/19 Per H&P: 63 F PMH HTN, DM, syncope, stage 4 bladder CA on Chemo Tx for past 1 yaer, last dose approx 3 months ago pasued due to previous port malfunction, RT for past few months, s/p recent chemo port 1 week prior, presents with near-syncope at PCp office. Patient reports approx 4 days of malaise associated with nausea, vomiting and weakness. No fever, chills, cough. She was her PCP office she was seen to leaned forward and was beginning to fall towards the ground when the daughter caught her. She was not seen to lose consciousness but patient does not reacall events clearly. Daughter reports patient had previous episodes of syncope at least 6 times in the past with no specific diagnosis. RD Note (06/15/19): The pt stated she had no appetite and food in general makes her feel sick. She stated as soon as it gets to her throat she wants to vomit. She has been able to keep some liquids down and asked for tomato soup. She was able to eat cream of wheat for breakfast. Pt says her weight fluctuates because of her cancer and she says sometimes she has energy to eat and other times she doesn't. Since pt is not eating and blood sugars are controlled, High Protein Ensure was given. Problem with: N: Yes V: Yes D: No C: No Problems with: Chewing: None Swallowing: None Current appetite: Poor Recent wt change: pt sates it varies because of the cancer %wt change: None Vitamin/Supplement use: None Special diet at home: Regular Physical activity: does yoga and cleans the house whenever she has energy Nutrition education given (specify specific nutrition education and handout given): NCM on MNT During and after Cancer treatment. Food-drug interactions: Ativan: limit caffeine to less than 400-500mg/day, Vancomycin: may cause bitter taste in mouth. Education given: Yes Estimated Nutritional Needs Based on actual body weight (61kg) Energy:1830-2135kcal/day (30-35kcal/kg for maintenance ) Protein: 91-122g/day (1.5-2.0g/kg for sepsis ) Fluid:1830-2135mL/day (1 mL/kcal) or per Nutrition Diagnosis: Inadequate oral intake r/t pt reporting not eating or having an appetite aeb PO intake of 0% Intervention 1. Education given on MNT during and after cancer treatment. 2. Continue on CCHO diet as tolerated. 3. Ensure High Protein BID spoke with Dr. Villegas and got confirmation Monitor/Evaluate Goal: PO intake at least 75% of estimated needs Monitor: PO intake, Labs, GI function MR F/U 06/18-06/20
--- NOTE | 2019-06-15 18:35 | NUR ---
PT WAS C/O BACK PAIN AND LEFT FOOT PAIN,05/12. ADMINISTERED MORPHIN IV 4MG AT 1805 AND REASSESSED NOW, PT SAID SHE DOESNOT HAVE PAIN ANYMORE. RESTING IN BED COMFORTABLY.
--- NOTE | 2019-06-15 19:02 | NUR ---
PT RESTING IN BED COMFORTABLY. DENIES ANY PAIN THIS TIME. STABLE. GAVE REPORT TO BAD WORK GATHERER NURSE.
--- NOTE | 2019-06-15 19:20 | NUR ---
RECIEVED PT RESTING IN BED WITH NO ACUTE DISTRESS, ASSESSMENT PERFORMED AT THIS TIME, PT DENIES GALLEGOS OR DIZZINESS, TELE [address] 100% PACED, IV TO THE RFA, PT DENIES PAIN OR SOB AT THIS TIME, ALL NEEDS ATTENDED TO AT THIS TIME, SAFETY PRECAUTIONS IN PLACE, WILL CONTINUE TO MONITOR.
--- NOTE | 2019-06-15 22:00 | NUR ---
PT REPORTS SEVERE 10/10 PAIN TO BACK, ADMINISTERED MORPHINE PRN PER ORDER (SEE MAR), WILL CONTINUE TO MONITOR
[2019-06-16] VITALS (9 sets, daily range): BP systolic 151–186; BP diastolic 61–108
--- NOTE | 2019-06-16 01:00 | NUR ---
PT RESTING IN BED WITH NO ACUTE DISTRESS, WATCHING TV, PT RESPONDS TO COMMAND AND DENIES PAIN OR SOB AT THIS TIME, ALL NEEDS ATTENDED TO WILL CONTINUE TO MONITOR
--- NOTE | 2019-06-16 03:00 | NUR ---
PT REPORTS SHOOTING PAIN 10/10 TO BACK RADIATING TO NECK, ADMINISTERED MORPHINE PRN PER PHYSICIANS ORDER (SEE MAR)
--- NOTE | 2019-06-16 05:16 | NUR ---
PT RESTED THROUGH THE EVENING BUT HAD 2 EPISODES OF SEVERE BACK PAIN THAT WAS TREATED WITH PRN ADMINISTRATION OF MORPHINE THAT WAS EFFECTIVE, PT HAD NO EPISODES OF SOB OR DIZZINESS, ALL NEEDS ATTENDED TO, PT IS RESTING IN BED WITH NO ACUTE DISTRESS, SAFETY PRECAUTIONS IN PLACE, WILL CONTINUE TO MONITOR AND ENDORSE CARE
[2019-06-16 06:55] LABS: ALKALINE PHOSPHATASE 72 U/L (46-116); ALT/SGPT 14 U/L (14-59); AST/SGOT 13 U/L (15-37); BILIRUBIN TOTAL 0.7 mg/dL (0.20-1.00); CALCIUM 7.8 mg/dL (8.5-10.1); CHLORIDE SERUM 108 mmol/L (98-107); CREATININE SERUM 0.9 mg/dL (0.6-1.0); GFR1 > 60 mL/min; GLUCOSE SERUM 109 mg/dL (74-106); POTASSIUM SERUM 4.1 mmol/L (3.5-5.1); SODIUM SERUM 142 mmol/L (136-145)
[2019-06-16 06:58] LABS: ALBUMIN 2.7 g/dL (3.4-5.0); TOTAL PROTEIN, SERUM 5.5 g/dL (6.4-8.2)
[2019-06-16 07:15] LABS: BASOPHIL % 0.6 % (0-2); PLATELET COUNT 170 x10^3mcL (130-400)
--- NOTE | 2019-06-16 07:50 | NUR ---
PATIENT RESTING IN BED, PATIENT C/O SEVERE BACK PAIN. MEDICATED PATIENT WITH MORPHINE 4MG IVP PER PROTOCOL (SEE EMAR). PATIENT IS A/OX4, DENIES HEADACHE. TELE MONITOR IN PLACE, PATIENT DENIES CHEST PAIN. NO RESP DISTRESS NOTED, ON ROOM AIR. NS IV INFUSING TO LEFT CHEST PORTACATH AT 80ML/HR, IV SITE CDI & PATENT, NO S/S OF INFILTRATION. CALL LIGHT WITHIN REACH, BED IN LOW POSITION, WILL CONTINUE TO MONITOR.
--- NOTE | 2019-06-16 09:14 | NUR ---
REASSESSED PATIENT VITAL SIGNS, BP TRENDING DOWN. BP: 162/72 HR:76 WILL CONTINUE TO MONITOR PATIENT.
--- NOTE | 2019-06-16 11:05 | NUR ---
PATIENT WAS HAVING INCREASE PAIN TO BACK 03/12, MEDICATED PATIENT WITH NORCO PO PER PROTOCOL (SEE EMAR). WILL CONTINUE TO MONITOR AND MANAGE PATIENT PAIN.
--- NOTE | 2019-06-16 11:18 | NUR ---
PATIENT BLOOD GLUCCOSE WAS 63, PATIENT IS ASYMPTOMATIC. GAVE PATIENT 2 JUICES & CRACKERS AT THIS TIME, WILL CONTINUE TO MONITOR PATIENT.
--- NOTE | 2019-06-16 11:57 | NUR ---
PATIENT FELT INCREASE BACKPAIN 05/12, MEDICATED PATIENT WITH MORPHINE PER PROTOCOL (SEE EMAR). WILL CONTINUE TO MONITOR PATIENT. CALL LIGHT WITHIN REACH.
--- NOTE | 2019-06-16 12:28 | NUR ---
PATIENT BP WAS 186/108 HR 79, MEDICATED PATIENT WITH HYDRALAZINE IVP 10MG PER PROTOCOL (SEE EMAR). WILL CONTINUE TO MONITOR BP & PAIN. CALL LIGHT WITHIN REACH, BED IN LOW POSITION.
--- NOTE | 2019-06-16 13:00 | NUR ---
PATIENT BP TRENDING DOWN, BP WAS 162/77 HR 85. WILL CONTINUE TO MONITOR AND MANAGE BP.
--- NOTE | 2019-06-16 15:57 | NUR ---
PATIENT WAS C/O OF INCREASING PAIN TO BACK 05/12, EDUCATED PATIENT ON RELAXATION TECHNIQUES, REPOSITION FOR COMFORT, MEDICATED PATIENT WITH MORPHINE PER PROTOCOL (SEE EMAR). CALL LIGHT WITHIN REACH, WILL CONTINUE TO MONITOR FOR CHANGES.
--- NOTE | 2019-06-16 17:42 | NUR ---
ASSESSED PATIENT BP AFTER HYDRALAZINE IVP GIVEN, BP DECREASED TO 156/64 HR:80. PATIENT DENIES PAIN. CALL LIGHT WITHIN REACH, ALL NEEDS MET. WILL CONTINUE TO MONITOR PATIENT.
--- NOTE | 2019-06-16 18:33 | NUR ---
DR. CHAVEZ GAVE TELEPHONE ORDERS FOR BLOOD CLUTURES X2 FROM [facility], 15MINS APART AND ORDERS TO DISCONTINUE AZACTAM IVPB. WILL CARRY OUT TORB AT THIS TIME.
--- NOTE | 2019-06-16 19:40 | NUR ---
RECEIVED REPORT FROM DAY SHIFT RN. PT RESTING IN BED WATCHING TV. NO SOB NOTED. BREATHING EVEN AND UNLABORED ON ROOM AIR. NO C/O PAIN AT THIS TIME. LEFT CHEST PORT-A-CATH IN PLACE, NS INFUSING. SAFETY MEASURES IN PLACE. BED IN LOWEST POSITION SIDE RAILS UP X2. INSTRUCTED PT TO USE THE CALL LIGHT FOR ASSISTANCE. CALL LIGHT WITHIN REACH.
--- NOTE | 2019-06-16 20:25 | NUR ---
MORPHINE GIVEN FOR BACK AND LEFT FOOT PAIN 04/11.
--- NOTE | 2019-06-16 23:52 | NUR ---
PT RESTING WITH EYES CLOSED. NO SOB ON ROOM AIR. NO DISTRESS NOTED. CALL LIGHT WITHIN REACH. WILL CONTINUE TO MONITOR.
--- NOTE | 2019-06-17 01:27 | NUR ---
C/O BACK PAIN 04/11. MORPHINE GIVEN.
[2019-06-17 05:05] VITALS: BP 164/72
--- NOTE | 2019-06-17 06:37 | NUR ---
C/O BACKACHE 04/11. MORPHINE GIVEN.
--- NOTE | 2019-06-17 07:00 | NUR ---
PT RESTED AT LONG INTERVALS DURINGS SHIFT. NO SOB NOTED. C/O BACKACHE X3 MEDICATED WITH MORPHINE. SAFETY MEASURES MAINTAINED. ALL NEEDS ATTENDED TO. CALL LIGHT WITHIN REACH. WILL ENDORSE CARE TO DAY SHIFT RN.
--- NOTE | 2019-06-17 07:40 | NUR ---
PATIENT RESTING IN BED, NO ACUTE DISTRESS NOTED AT THIS TIME. PATIENT DENIES PAIN. DENIES HEADACHE. PATIENT A/OX4. TELE MONITOR IN PLACE. DENIES SOB, ON ROOM AIR. PATIENT AMBULATORY, SLOW GAIT NOTED. NS IV INFUSING TO LEFT CHEST PORTACATH AT 80ML/HR, IV PATENT AND INTACT. INSTRUCTED PATIENT TO CALL FOR ASSISTANCE WHEN NEEDED, CALL LIGHT WITHIN REACH, BED IN LOW POSITION. WILL CONTINUE TO MONITOR.
[2019-06-17 08:25] VITALS: BP 166/73
--- NOTE | 2019-06-17 10:50 | NUR ---
PATIENT WAS C/O PAIN TO BACK 05/12, VITAL SIGNS; BP: 152/74 HR:79. MEDICATED PATIENT WITH MORPHINE IVP (SEE EMAR). CALL LIGHT WITHIN REACH, BED IN LOW POSITION , WILL CONTINUE TO MONITOR.
[2019-06-17 12:45] VITALS: BP 152/74
--- NOTE | 2019-06-17 14:46 | NUR ---
PATIENT WAS C/O OF BACK PAIN 05/12, MEDICATED PATIENT WITH MORPHINE PER PROTOCOL (SEE EMAR). BP: 167/83 HR:77. WILL CONTINUE TO MONITOR & MANAGE PAIN.
--- NOTE | 2019-06-17 15:10 | NUR ---
PATIENT SBP WAS >160 MEDICATED PATIENT WITH HYDRALAZINE IVP PER PROTOCOL. WILL CONTINUE TO MONITOR FOR CHANGES. CALL LIGHT WITHIN REACH.
--- NOTE | 2019-06-17 15:26 | NUR ---
REASSESSED PATIENT BP, BP DECREASED TO 153/70 HR 75. NO ACUTE DISTRESS NOTED. WILL CONTINUE TO MONITOR.
[2019-06-17 15:28] VITALS: BP 153/70
[2019-06-17 17:27] VITALS: BP 163/77
--- NOTE | 2019-06-17 19:40 | NUR ---
RECEIVED REPORT FROM DAY SHIFT RN. PT RESTING IN BED. NO ACUTE DISTRESS NOTED. BREATHING EVEN AND UNLABORED ON ROOM AIR. LEFT UPPER CHEST PORT-A-CATH, INTACT. SAFETY MEASURES IN PLACE. BED IN LOWEST POSITION. SIDE RAILS UP X2. INSTRUCTED PT TO USE THE CALL LIGHT FOR ASSISTANCE. CALL LIGHT WITHIN REACH.
[2019-06-17 21:23] VITALS: BP 182/86
--- NOTE | 2019-06-17 23:03 | NUR ---
PT C/O BACK PAIN 04/11. MEDICATED WITH MORPHINE.
--- NOTE | 2019-06-18 00:20 | NUR ---
PT RESTING IN BED WITH EYES CLOSED. BREATHING EVEN AND UNLABORED. NO DISTRESS NOTED. CALL LIGHT WITHIN REACH. WILL CONTINUE TO MONITOR.
[2019-06-18 01:45] VITALS: BP 159/56
--- NOTE | 2019-06-18 03:18 | NUR ---
MORPHINE GIVEN FOR BACK PAIN 04/11.
--- NOTE | 2019-06-18 04:12 | NUR ---
HYDRALAZINE GIVEN FOR BP 176/81 HR 82.
[2019-06-18 05:04] VITALS: BP 147/83
--- NOTE | 2019-06-18 06:56 | NUR ---
PT RESTED AT INTERVALS DURING SHIFT. C/O BACK PAIN X2 MEDICATED PER ORDER. SAFETY MEASURES MAINTAINED. ALL NEEDS ATTENDED TO. WILL ENDORSE CONTINUITY OF CARE TO ONCOMING RN.
--- NOTE | 2019-06-18 07:10 | NUR ---
RECEIVED PT FROM PATIENT REGISTRATION SUPERVISOR RN. Miky/LUIS DANIEL. TELE#[id number]. RESPIRATIONS EQUAL AND UNLABORED ON RA. DENIES SOB. PORTACATH TO LEFT UPPER CHEST PATENT AND INFUSING. NO S/S OF INFECTION NOTED. DRESSING CDI. PT C/O PAIN 5/10 TO LOWER BACK AND FEET. TOLERABLE AT THIS TIME BUT INCREASING. DR. SOLIS AT BEDSIDE, UPDATING PT OKAY TO GO HOME TODAY. ALL QUESTIONS AND CONCERNS ADDRESSED. WILL CONTINUE TO MONITOR. CALL LIGHT IN REACH. BED IN LOWEST POSITION.
--- NOTE | 2019-06-18 07:49 | NUR ---
PT SITTING UP IN BED. PT C/O PAIN 04/11 TO FEET AND LOWER BACK. PT STATES PAIN TO LOWER BACK FEELS LIKE PRESSURE, PAIN TO FEET FEELS LIKE NEEDLES. MEDICATED PER EMAR. PT STATES "I DO TAKE MEDICATION AT HOME THAT HELPS WITH MY PAIN" PORTACATH TO UPPER LEFT CHEST PATENT AND INFUSING. WILL CONTINUE TO MONITOR. CALL LIGHT IN REACH. BED IN LOWEST POSITION.
--- NOTE | 2019-06-18 08:39 | NUR ---
PT SITTING UP IN BED. NO ACUTE RESP DISTRESS NOTED ON RA. PT STATES PAIN HAS IMPROVED 5/10 SINCE RECEIVING MORPHINE. BLOOD PRESSURE CHECKED WAS 165/80. GIVEN PO MEDS. TOLERATED WELL. WILL CONTINUE TO MONITOR. CALL LIGHT IN REACH. BED IN LOWEST POSITION.
[2019-06-18 09:00] VITALS: BP 167/76
[2019-06-18 09:55] VITALS: BP 165/80
--- NOTE | 2019-06-18 10:03 | NUR ---
James NOTES PATIENT REFUSED TO BE SEEN BY James, STATES SHE WILL BE D/C TODAY AND JUNE LIKE TO JUST WAIT UNTIL THEN.
--- NOTE | 2019-06-18 11:40 | NUR ---
PT SITTING UP AT BEDSIDE. PT GIVEN DISCHARGE INSTRUCTIONS. PT ENCOURAGED TO CONTINUE LIGHT ACTIVITY TOLERATED. PT ENCOURAGED TO CONTINUE A REGULAR DIET AND MONITOR BLOOD SUGARS AT HOME. PT VERBALIZED UNDERSTANDING. PT NOTIFIED OF FOLLOW UP APPOINTMENT WITH PCP ON 06/25 AT 11 AM. PT VERBALIZED UNDERSTANDING. PT ENCOURAGED TO CONTINUE HOME MEDICATIONS PRESCRIBED. PT VERALIZED UNDERSTANDING. NO PRESCRIPTIONS FOR MEDICATIONS GIVEN. ALL QUESTIONS AND CONCERNS ADDRESSED. NO PROBLEMS ENCOUNTERED. LEFT UPPER CHEST PORT A CATH DEACCESSED, CLEANSED SITE WITH ALCOHOL APPLIED ISLAND DRESSING. PT TOLERATED WELL. NO BLEEDING NOTED. PT TAKEN OFF FLOOR VIA WHEELCHAIR BY SHRADDHA.
--- NOTE | 2019-06-18 14:49 | NUR ---
PHYSICAL THERAPY DAILY NOTES CO-SIGN All documentation done by the Road Machine Operator for 06/18/19 has been reviewed. I agree with the documentation. Reviewed/Co-Signed by: Linda Villegas PT Documentation Done by:[email or web address] LOTT PTA
== END 2019-06-18 11:50 | disposition home or self-care (01) | DRG 392 ==
LOC: ED 10:59 → DU 15:23
PROVIDERS: Specialist; ADMIT Internal Medicine Pulmonary Disease
DX: A08.4 Viral intestinal infection, unspecified (principal); C78.01 Secondary malignant neoplasm of right lung; C67.9 Malignant neoplasm of bladder, unspecified; E86.0 Dehydration; R55 Syncope and collapse; R54 Age-related physical debility; I13.10 Hypertensive heart and chronic kidney disease without heart failure, with stage 1 through stage 4 chronic kidney disease, or unspecified chronic kidney disease; E11.22 Type 2 diabetes mellitus with diabetic chronic kidney disease; N18.9 Chronic kidney disease, unspecified; J44.9 Chronic obstructive pulmonary disease, unspecified; I25.10 Atherosclerotic heart disease of native coronary artery without angina pectoris; E03.9 Hypothyroidism, unspecified; M51.36 Other intervertebral disc degeneration, lumbar region; F17.210 Nicotine dependence, cigarettes, uncomplicated; Z68.21 Body mass index [BMI] 21.0-21.9, adult; Z96.652 Presence of left artificial knee joint; Z86.711 Personal history of pulmonary embolism; Z79.899 Other long term (current) drug therapy
CPT/HCPCS: 36600; 72072; 82962; 84439; 97116-GP; 97530-GP; G0378; J0360; J1644; J1885; J1956; J2270; J2405; J3010; J3370; J3475; J3490; J7030

== ENCOUNTER 2019-09-08 14:21 | Inpatient (IN) | payer OTHER ==
[~2019-09-08] VITALS: Ht 165.1 cm; Wt 58.5 kg
[2019-09-08 14:32] VITALS: Ht 165.1 cm; Wt 58.5 kg
[2019-09-08 15:19] LABS: BASOPHIL % 0.4 % (0-2); PLATELET COUNT 242 x10^3mcL (130-400); RED CELL DISTRIBUTION WIDTH 14.5 % (11.5-14.5)
[2019-09-08 15:36] LABS: CALCIUM 8.5 mg/dL (8.5-10.1); CARBON DIOXIDE 25.7 mmol/L (21-32); POTASSIUM SERUM 3.5 mmol/L (3.5-5.1)
[2019-09-08 15:41] LABS: BILIRUBIN TOTAL 0.5 mg/dL (0.20-1.00); MAGNESIUM 1.9 mg/dL (1.8-2.4); TOTAL PROTEIN, SERUM 7.6 g/dL (6.4-8.2)
[2019-09-08 15:42] LABS: ALBUMIN 3.2 g/dL (3.4-5.0)
[2019-09-08 17:54] VITALS: BP 168/76
[2019-09-08 23:09] VITALS: BP 226/87
[2019-09-08 23:40] VITALS: BP 182/87
[2019-09-09] VITALS (7 sets, daily range): BP systolic 160–191; BP diastolic 72–98
[2019-09-09 16:21] LABS: UA SPECIFIC GRAVITY 1.025 (1.005-1.035); microscopic required? YES; urine erythrocyte NEGATIVE (NEGATIVE)
[2019-09-10 04:54] VITALS: BP 160/97
[2019-09-10 07:09] LABS: PLATELET COUNT 237 x10^3mcL (130-400); RED CELL DISTRIBUTION WIDTH 14.4 % (11.5-14.5)
[2019-09-10 07:32] LABS: BASOPHIL % 0 % (0-2)
[2019-09-10 07:42] LABS: ALKALINE PHOSPHATASE 117 U/L (46-116); ALT/SGPT 28 U/L (14-59); AST/SGOT 13 U/L (15-37); BILIRUBIN DIRECT 0.12 mg/dL (0.0-0.2); BILIRUBIN TOTAL 0.36 mg/dL (0.20-1.00); CALCIUM 8.4 mg/dL (8.5-10.1); CARBON DIOXIDE 24.3 mmol/L (21-32); CHLORIDE SERUM 104 mmol/L (98-107); CREATININE SERUM 0.9 mg/dL (0.6-1.0); GFR1 > 60 mL/min; GLUCOSE SERUM 171 mg/dL (74-106); SODIUM SERUM 137 mmol/L (136-145); TOTAL PROTEIN, SERUM 6.4 g/dL (6.4-8.2)
[2019-09-10 07:44] LABS: ALBUMIN 2.5 g/dL (3.4-5.0)
[2019-09-10 08:50] VITALS: BP 178/103
[2019-09-10 14:57] VITALS: BP 204/105
[2019-09-10 16:21] VITALS: BP 192/95
[2019-09-10 18:34] VITALS: BP 191/100
[2019-09-10 22:16] VITALS: BP 160/62
[2019-09-11 05:45] VITALS: BP 193/112
[2019-09-11 06:40] LABS: BASOPHIL % 0.4 % (0-2); PLATELET COUNT 276 x10^3mcL (130-400); RED CELL DISTRIBUTION WIDTH 14.2 % (11.5-14.5)
[2019-09-11 06:43] LABS: CALCIUM 8.8 mg/dL (8.5-10.1); CREATININE SERUM 1.1 mg/dL (0.6-1.0); POTASSIUM SERUM 3.7 mmol/L (3.5-5.1)
[2019-09-11 08:40] VITALS: BP 176/96
[2019-09-11 12:16] VITALS: BP 190/127
[2019-09-11 16:14] VITALS: BP 187/84
[2019-09-11 20:24] VITALS: BP 185/82
[2019-09-11 22:15] VITALS: BP 168/75
[2019-09-12 05:20] VITALS: BP 170/88
[2019-09-12 06:33] LABS: PLATELET COUNT 267 x10^3mcL (130-400); RED CELL DISTRIBUTION WIDTH 14.5 % (11.5-14.5)
[2019-09-12 06:39] LABS: ALKALINE PHOSPHATASE 103 U/L (46-116); ALT/SGPT 27 U/L (14-59); AST/SGOT 10 U/L (15-37); BILIRUBIN TOTAL 0.37 mg/dL (0.20-1.00); CARBON DIOXIDE 26.3 mmol/L (21-32); CHLORIDE SERUM 101 mmol/L (98-107); CREATININE SERUM 0.9 mg/dL (0.6-1.0); GFR1 > 60 mL/min; GLUCOSE SERUM 210 mg/dL (74-106); POTASSIUM SERUM 3.8 mmol/L (3.5-5.1); SODIUM SERUM 134 mmol/L (136-145)
[2019-09-12 06:41] LABS: ALBUMIN 2.7 g/dL (3.4-5.0); TOTAL PROTEIN, SERUM 6.1 g/dL (6.4-8.2)
[2019-09-12 06:52] LABS: BASOPHIL % 0 % (0-2)
[2019-09-12 08:37] LABS: ERYTHROCYTE SED RATE 22 mm/hr (0-30)
[2019-09-12 08:40] VITALS: BP 172/87
[2019-09-12 12:25] VITALS: BP 233/127
[2019-09-12 12:45] VITALS: BP 180/85
[2019-09-12 19:04] VITALS: BP 190/78
[2019-09-12 19:30] VITALS: BP 152/87
[2019-09-13 05:52] VITALS: BP 169/85
[2019-09-13 08:55] VITALS: BP 173/81
[2019-09-13 12:35] VITALS: BP 180/83
[2019-09-13 21:34] VITALS: BP 171/94
[2019-09-14 01:10] VITALS: BP 154/78
[2019-09-14 05:14] VITALS: BP 164/71
[2019-09-14 06:18] LABS: BASOPHIL % 0.2 % (0-2); PLATELET COUNT 297 x10^3mcL (130-400)
[2019-09-14 06:26] LABS: RED CELL DISTRIBUTION WIDTH 14.7 % (11.5-14.5)
[2019-09-14 06:30] LABS: CALCIUM 8.6 mg/dL (8.5-10.1); CARBON DIOXIDE 25.6 mmol/L (21-32); POTASSIUM SERUM 4.3 mmol/L (3.5-5.1)
[2019-09-14 07:28] VITALS: BP 199/97
[2019-09-14 11:36] VITALS: BP 160/85
[2019-09-14 16:14] VITALS: BP 159/85
== END 2019-09-14 16:52 | disposition home health service (06) | DRG 314 ==
LOC: ED 14:21 → DU 17:39
PROVIDERS: Emergency Medicine; Surgery; ADMIT Internal Medicine Pulmonary Disease
PROC: 0JPT0WZ Removal of Totally Implantable Vascular Access Device from Trunk Subcutaneous Tissue and Fascia, Open Approach (ICD-10-PCS; principal; 2019-09-13 15:00)
DX: T80.211A Bloodstream infection due to central venous catheter, initial encounter (principal); A41.1 Sepsis due to other specified staphylococcus; C78.00 Secondary malignant neoplasm of unspecified lung; C67.9 Malignant neoplasm of bladder, unspecified; I10 Essential (primary) hypertension; F41.8 Other specified anxiety disorders; J44.9 Chronic obstructive pulmonary disease, unspecified; E03.9 Hypothyroidism, unspecified; Z79.899 Other long term (current) drug therapy; Z87.891 Personal history of nicotine dependence; Z68.21 Body mass index [BMI] 21.0-21.9, adult; Z86.711 Personal history of pulmonary embolism; Z79.01 Long term (current) use of anticoagulants; Y71.2 Prosthetic and other implants, materials and accessory cardiovascular devices associated with adverse incidents; Y92.009 Unspecified place in unspecified non-institutional (private) residence as the place of occurrence of the external cause
CPT/HCPCS: 82962; 83880; 87804; C1751; G0378; J0360; J1170; J1815; J1956; J2250; J2270; J2405; J2704; J2920; J2930; J3010; J3370; J3490; J7030; J7613; J7620; J7644; Q0092

== ENCOUNTER 2020-01-21 13:06 | Observation (INO) | payer OTHER, SELFPAY ==
[~2020-01-21] VITALS: Ht 165.1 cm; Wt 61.7 kg
[2020-01-21 14:31] VITALS: Ht 165.1 cm; Wt 61.7 kg
[2020-01-21 14:39] LABS: microscopic required? NO
[2020-01-21 15:18] LABS: UA SPECIFIC GRAVITY <=1.005 (1.005-1.035); urine erythrocyte NEGATIVE (NEGATIVE)
[2020-01-21 15:38] LABS: BASOPHIL % 0.8 % (0-2); PLATELET COUNT 302 x10^3mcL (130-400)
[2020-01-21 15:39] LABS: RED CELL DISTRIBUTION WIDTH 14.6 % (11.5-14.5)
[2020-01-21 15:52] LABS: CALCIUM 9.4 mg/dL (8.5-10.1); CARBON DIOXIDE 28.7 mmol/L (21-32); CHLORIDE SERUM 98 mmol/L (98-107); CREATININE SERUM 0.9 mg/dL (0.6-1.0); GFR1 > 60 mL/min; GLUCOSE SERUM 125 mg/dL (74-106); POTASSIUM SERUM 3.9 mmol/L (3.5-5.1); SODIUM SERUM 135 mmol/L (136-145); T3 TOTAL 1.2 ng/mL
[2020-01-21 15:56] LABS: ALKALINE PHOSPHATASE 106 U/L (46-116); ALT/SGPT 17 U/L (14-59); AST/SGOT 13 U/L (15-37); BILIRUBIN TOTAL 0.2 mg/dL (0.20-1.00); CHOLESTEROL 196 mg/dL (<200); CHOLESTEROL/HDL RATIO 4.2; HDL CHOLESTEROL 47 mg/dL (40-60); LIPASE 48 IU/L (73-393); TOTAL PROTEIN, SERUM 7.4 g/dL (6.4-8.2); TRIGLYCERIDES 148 mg/dL (<150)
[2020-01-21 15:58] LABS: ALBUMIN 3.3 g/dL (3.4-5.0)
[2020-01-21 16:31] LABS: FREE T4 1.11 ng/dL (0.76-1.46); FREE THYROXINE INDEX 3.2 ug/dL (1.4-4.5); T4(THYROXINE) 9.3 ug/dL (4.7-13.3)
[2020-01-21] MEDS ORDERED: ADALAT CC90 MG PO (17:16)
[2020-01-21] MEDS ORDERED: GOOD NEIGHBOR P20 M2 PO (17:17)
[2020-01-21] MEDS ORDERED: ELIQUIS5 MG PO (17:18)
[2020-01-21] MEDS ORDERED: GABAPENTIN PO (17:19)
[2020-01-21] MEDS ORDERED: GLUMETZA500 MG PO (17:19)
[2020-01-21] MEDS ORDERED: ACETAMINOPHEN-H1 TAB PO (17:21)
[2020-01-21] MEDS ORDERED: KAPVAY0.1 MG PO (17:22)
[2020-01-21] MEDS ORDERED: XANAX0.5 MG PO (17:22)
[2020-01-21] MEDS ORDERED: CEFDINIR300 M1 PO (17:23)
[2020-01-21] MEDS ORDERED: CLARITHROMYCIN500 M1 PO (17:23)
[2020-01-21] MEDS ORDERED: PROMETHAZINE PO (17:26)
[2020-01-21 20:49] VITALS: BP 177/94
[2020-01-21 22:59] VITALS: BP 163/101
[2020-01-22 05:30] VITALS: BP 220/100
[2020-01-22 07:16] LABS: BASOPHIL % 1.2 % (0-2); PLATELET COUNT 323 x10^3mcL (130-400); RED CELL DISTRIBUTION WIDTH 14.3 % (11.5-14.5)
[2020-01-22 07:37] LABS: CALCIUM 9.4 mg/dL (8.5-10.1); CARBON DIOXIDE 26.5 mmol/L (21-32); CHLORIDE SERUM 104 mmol/L (98-107); CREATININE SERUM 0.9 mg/dL (0.6-1.0); GFR1 > 60 mL/min; GLUCOSE SERUM 129 mg/dL (74-106); POTASSIUM SERUM 3.8 mmol/L (3.5-5.1); SODIUM SERUM 141 mmol/L (136-145)
[2020-01-22 09:01] VITALS: BP 189/95
[2020-01-22 12:39] VITALS: BP 182/104
[2020-01-22 20:36] VITALS: BP 211/85
[2020-01-22 23:00] VITALS: BP 164/106
[2020-01-23 01:25] VITALS: BP 181/106
[2020-01-23 05:25] VITALS: BP 188/88
[2020-01-23 06:34] LABS: BASOPHIL % 1.6 % (0-2); PLATELET COUNT 338 x10^3mcL (130-400); RED CELL DISTRIBUTION WIDTH 14.4 % (11.5-14.5)
[2020-01-23 06:45] VITALS: BP 155/101
[2020-01-23 07:17] LABS: BILIRUBIN TOTAL 0.26 mg/dL (0.20-1.00); CALCIUM 9.3 mg/dL (8.5-10.1); CARBON DIOXIDE 25.9 mmol/L (21-32); POTASSIUM SERUM 3.9 mmol/L (3.5-5.1); TOTAL PROTEIN, SERUM 7.3 g/dL (6.4-8.2)
[2020-01-23 07:18] LABS: ALBUMIN 3.2 g/dL (3.4-5.0)
[2020-01-23 09:00] VITALS: BP 212/108
[2020-01-23] MEDS ORDERED: MSC30 PO (10:55)
[2020-01-23] MEDS ORDERED: LEVOFLOXACIN500 M1 PO (10:56)
[2020-01-23 11:18] VITALS: BP 157/86
== END 2020-01-23 13:54 | disposition home or self-care (01) ==
LOC: ED 13:06 → DU 16:23
PROVIDERS: Specialist; ADMIT Hospitalist
DX: R07.2 Precordial pain (principal); J18.9 Pneumonia, unspecified organism; J44.9 Chronic obstructive pulmonary disease, unspecified; E11.9 Type 2 diabetes mellitus without complications; I10 Essential (primary) hypertension; E03.9 Hypothyroidism, unspecified; F41.9 Anxiety disorder, unspecified; F32.9 Major depressive disorder, single episode, unspecified; C67.9 Malignant neoplasm of bladder, unspecified; C78.00 Secondary malignant neoplasm of unspecified lung; F17.200 Nicotine dependence, unspecified, uncomplicated; Z86.711 Personal history of pulmonary embolism; Z79.01 Long term (current) use of anticoagulants
CPT/HCPCS: 82962; 83880; 84439; 87804; C1751; C9113; G0378; J0360; J0456; J1815; J1956; J2270; J2405; J7030; J7050; Q0092; Q9967